=== PATIENT | female | born 1970 | race Caucasian/White ===

== ENCOUNTER → 2016-12-15 | Outpatient (CLI) | payer BC ==
[2006-04-04 07:10] VITALS: TEMP 97.8
== END ==
LOC: MC.RAD 15:20
DX: Z12.31 Encounter for screening mammogram for malignant neoplasm of breast (principal)

== ENCOUNTER → 2017-10-25 | Outpatient (CLI) | payer BC ==
[2006-04-04 07:10] VITALS: PULSE 68; TEMP 97.8
[~2017-10-25] MED LIST: LEXAPRO20 MG PO; NEXIUM 20MG20 MG PO
== END ==
LOC: COL.VAS 15:15
DX: I08.8 Other rheumatic multiple valve diseases (principal)

== ENCOUNTER 2017-11-03 14:05 | Emergency (ER) | payer BC ==
[~2017-11-03] VITALS: Ht 154.9 cm; Wt 75.9 kg
[2017-11-03 14:07] VITALS: TEMP 98
[2017-11-03] MEDS ORDERED: LEXAPRO20 MG PO (14:32)
[2017-11-03] MEDS ORDERED: NEXIUM 20MG20 MG PO (14:32)
[2017-11-03 14:49] LABS: BASO # 0.1 (0.0-0.2); BASO % 0.5 % (0.0-2.0); EOS # 0.1 (0.0-0.7); EOS % 0.8 % (0-4.0); GRAN # 9.9 (1.4-6.5); GRAN % 76.5 % (42.2-75.2); HEMATOCRIT 40.1 % (37.0-47.0); HEMOGLOBIN 13.6 g/dl (12.5-16.0); LYMPH % 15.5 % (20.0-51.0); MEAN CELL VOLUME 96 fl (80.0-100.0); MEAN CORPUSCULAR HEMOGLOBIN 33 pg (27.0-31.0); MEAN CORPUSCULAR HGB CONC 34 g/dl (33.0-37.0); MEAN PLATELET VOLUME 10.7 fl (7.4-10.4); MONO # 0.8 (0.1-0.6); MONO % 6.5 % (1.7-9.3); PLATELET COUNT 263 K/mm3 (130-400); RED BLOOD COUNT 4.18 M/mm3 (4.10-5.30); REDCELL DISTRIBUTION WIDTH-CV 12.7 % (11.5-14.5)
[2017-11-03 14:58] LABS: ALBUMIN 4.4 gm/dL (3.5-5.0); BILIRUBIN,TOTAL 0.4 mg/dL (0.0-1.0); CALCIUM 8.7 mg/dL (8.4-10.2); CREATININE, serum 0.66 mg/dL (0.52-1.25); TOTAL PROTEIN 7.3 gm/dL (6.4-8.2)
[2017-11-03 15:18] LABS: COLLECTION METHOD CLEAN CATCH
[2017-11-03 15:28] LABS: THYROID STIMULATING HORMONE 0.599 uIU/mL (0.465-4.680)
[2017-11-03 15:28] LABS: MUCOUS Present /lpf; PH 5 (5-8); URINE APPEARANCE Hazy; URINE BACTERIA Rare /hpf; URINE BILIRUBIN Negative (NEGATIVE); URINE BLOOD Negative (NEGATIVE); URINE COLOR Yellow; URINE GLUCOSE Negative (NEGATIVE); URINE KETONE Negative (NEGATIVE); URINE LEUKOCYTE ESTERASE Negative (NEGATIVE); URINE NITRATE Negative (NEGATIVE); URINE PROTEIN(semi-quant) Negative (NEGATIVE); URINE RBC 0-2 /hpf; URINE UROBILINOGEN Negative (NEGATIVE)
[2017-11-03 15:57] VITALS: BP 126/81; PULSE 75
== END 2017-11-03 15:58 | disposition home or self-care (01) ==
LOC: COL.ER 14:05
PROVIDERS: Nurse Practitioner
DX: F41.9 Anxiety disorder, unspecified (principal); F32.9 Major depressive disorder, single episode, unspecified; Z88.8 Allergy status to other drugs, medicaments and biological substances; Z87.891 Personal history of nicotine dependence

== ENCOUNTER → 2018-07-02 | Outpatient (CLI) | payer BC ==
[2006-04-04 07:10] VITALS: TEMP 97.8
== END ==
LOC: MC.RAD 16:30
DX: Z12.31 Encounter for screening mammogram for malignant neoplasm of breast (principal)

== ENCOUNTER 2021-07-14 06:59 | Day surgery (SDC) | payer BC ==
[~2021-07-14] VITALS: Ht 155 cm; Wt 69.1 kg
[2021-07-14] VITALS (12 sets, daily range): BP systolic 101–136; BP diastolic 68–89; PULSE 59–74; TEMP 97.9
[2021-07-14 08:13] LABS: HEMATOCRIT 39.7 % (37.0-47.0); HEMOGLOBIN 13.2 g/dl (12.5-16.0); MEAN CELL VOLUME 98 fl (80.0-100.0); MEAN CORPUSCULAR HEMOGLOBIN 33 pg (27.0-31.0); MEAN CORPUSCULAR HGB CONC 33 g/dl (33.0-37.0); MEAN PLATELET VOLUME 10.5 fl (7.4-10.4); PLATELET COUNT 244 K/mm3 (130-400); RED BLOOD COUNT 4.06 M/mm3 (4.10-5.30); REDCELL DISTRIBUTION WIDTH-CV 11.9 % (11.5-14.5)
[2021-07-14 08:18] LABS: INR 1.1 (0.8-3.0); PROTHROMBIN TIME 12.7 SECONDS (9.7-12.8)
[2021-07-14 08:25] LABS: CALCIUM 9.6 mg/dL (8.4-10.2); CREATININE, serum 0.76 mg/dL (0.57-1.11); POTASSIUM 4.3 mmol/L (3.5-4.5)
[2021-07-14] MEDS ORDERED: VITAMIN B COMPL1 SGL PO (08:58)
[2021-07-14] MEDS ORDERED: OCUVITE1 TA1 PO (08:58)
[2021-07-14] MEDS ORDERED: MOVE FREE PLUS1 EACH PO (08:59)
[2021-07-14] MEDS ORDERED: NERVE RENEW PO (08:59)
[2021-07-14] MEDS ORDERED: HAIRSKINNAILS PO (09:00)
--- NOTE | 2021-07-14 09:12 | NUR ---
SEE MERGE DOCUMENTATION FOR MEDICATION ADMINISTRATION AND INTRA/POST PROCEDURE SEDATION ASSESSMENTS.
--- NOTE | 2021-07-14 13:00 | NUR ---
All air released from band in 2-3 ml inriments.no bleeding observed at site.INT removed,catheter tip intact.Discharge instructions given to pt.Pt verbalizes understanding.Pt escorted out via wheelchair by this nurse.
== END 2021-07-14 15:02 ==
LOC: COL.CAR 06:59
PROVIDERS: Internal Medicine Cardiovascular Disease
DX: R07.89 Other chest pain (principal); R94.39 Abnormal result of other cardiovascular function study; F41.9 Anxiety disorder, unspecified
CPT/HCPCS: J1644; J2250; J3010

== ENCOUNTER → 2022-11-02 | Outpatient (CLI) | payer BC ==
[2006-04-04 07:10] VITALS: TEMP 97.8
[~2022-11-02] MED LIST changes: +HAIRSKINNAILS PO; +MOVE FREE PLUS1 EACH PO; +NERVE RENEW PO; +OCUVITE1 TA1 PO; +VITAMIN B COMPL1 SGL PO
== END ==
LOC: MC.RAD 08-24 09:15
DX: Z12.31 Encounter for screening mammogram for malignant neoplasm of breast (principal)

== ENCOUNTER → 2022-11-02 | Outpatient (CLI) | payer BC ==
[2006-04-04 07:10] VITALS: TEMP 97.8
== END ==
LOC: MC.RAD 10:23
DX: Z12.31 Encounter for screening mammogram for malignant neoplasm of breast (principal)